=== PATIENT | male | born 1995 | race Caucasian/White ===

== ENCOUNTER → 2020-06-25 11:09 | Outpatient (CLI) | payer MEDICAID, BC, SELFPAY | PROVIDERS: PCP Family Medicine; Visit Provider Family Medicine | DX: Z20.828 Contact with and (suspected) exposure to other viral communicable diseases (principal); U07.1 COVID-19 | CPT/HCPCS: U0003 ==

== ENCOUNTER → 2021-08-22 12:30 | Outpatient (CLI) | payer OTHER, SELFPAY | PROVIDERS: Visit Provider Nurse Practitioner | DX: Z20.822 Contact with and (suspected) exposure to COVID-19 (principal) | CPT/HCPCS: C9803; U0003; U0005 ==

== ENCOUNTER → 2021-08-29 10:41 | Outpatient (CLI) | payer OTHER, SELFPAY ==
[2021-08-29 11:53] LABS: Basophils # 0.1 K/mm3 (0-0.2); Basophils % 2.2 % (0.1-2.0); Eosinophils % 0.5 % (0.1-12.0); Hematocrit 44.9 % (42.0-52.0); Lymphocytes # 1.1 K/mm3 (0.7-4.5); Lymphocytes % 19.6 % (10-50); Mean Corpuscular HGB Conc 33.4 g/dL (31.8-35.4); Mean Corpuscular Volume 92.7 fl (80-94); Mean Platelet Volume 7.3 fl (7.4-10.4); Monocytes # 0.4 K/mm3 (0.1-1.0); Neutrophils # 3.9 K/mm3 (1.8-7.8); Neutrophils % 70.6 % (37.0-80.0); Platelet Count 314 K/mm3 (142-424); Red Blood Count 4.85 M/mm3 (4.60-6.20); Red Cell Distribution Width 13.3 % (11.5-17.5); White Blood Count 5.6 K/mm3 (4.8-10.8)
[2021-08-29 12:03] LABS: Adenovirus,PCR Not Detected (NotDetected); Bordetella Pertussis Not Detected (NotDetected); Chlamydophila Pneumoniae, PCR Not Detected (NotDetected); Coronavirus 229E Not Detected (NotDetected); Coronavirus NL63 Not Detected (NotDetected); Coronavirus OC43 Not Detected (NotDetected); Coronovirus HKU1,PCR Not Detected (NotDetected); Human Metapneumovirus Not Detected (NotDetected); Influenza A, PCR Not Detected (NotDetected); Influenza AH1, 2009 Not Detected (NotDetected); Influenza AH1, PCR Not Detected (NotDetected); Influenza AH3,PCR Not Detected (NotDetected); Influenza B, PCR Not Detected (NotDetected); Mycoplasma Pneumoniae, PCR Not Detected (NotDetected); Parainfluenza 1, PCR Not Detected (NotDetected); Parainfluenza 2, PCR Not Detected (NotDetected); Parainfluenza 3, PCR Not Detected (NotDetected); Parainfluenza 4, PCR Not Detected (NotDetected); Respiratory Syncytial Virus Not Detected (NotDetected); Rhinovirus/Enterovirus Not Detected (NotDetected)
[2021-08-29 12:30] LABS: Strep Scrn Group A (Rapid) Negative (Negative)
== END ==
PROVIDERS: PCP Family Medicine; Visit Provider Family Medicine
DX: U07.1 COVID-19 (principal)
CPT/HCPCS: 36415; 85025; 87430; 87486; 87581; 87632; 87798; C9803; U0003; U0005

== ENCOUNTER 2025-02-08 18:49 | Emergency (ER) | payer BC, SELFPAY ==
--- NOTE | 2025-02-08 19:41 | [facility].EDGENADL ---
Discharge Plan Disposition Patient Disposition: Home, Self-Care Condition: Good Referrals Follow up/Referrals: Apryl Camacho MD [Primary Care Provider, Medical] - See instructions Activity Restrictions/Add. Instructions Additional Instructions/Restrictions: If you continue to have headaches I recommend following up with your PCP for referral for neurologic evaluation however should you have any worsening signs or symptoms please return to the Emergency Department as needed. Clinical Impressions Clinical Impression: Migraine Qualifiers: Migraine type: migraine (< 15 days per month) with aura Status migrainosus presence: without status migrainosus Intractability: not intractable Qualified Code(s): G43.109 - Migraine with aura, not intractable, without status migrainosus Instructions Patient Instructions: DI for Migraine Print Language Print Language: Beninese Discharge ED Provider: Jono Dacosta Adult HPI <JESSE Cox - Last Filed: 02/08/25 20:48> General Chief complaint: Headache Stated complaint: got headache, nausea after a workout Time Seen by Provider: 02/08/25 19:41 History of Present Illness HPI narrative: Patient presents for evaluation of a headache. Patient reports that he had acute onset of headache this afternoon. It was preceded by a workout however it was not particularly difficult. 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 Patient states that it for started with vision changes in his right eye followed by the headache and then nausea and then 1 episode of vomiting. Patient reports photophobia phonophobia. He does not have a known history of migraines but has had multiple concussions in the past. He has had headaches previously because of that but nothing like this before. It is not the worst headache that has had in his life. He has no focal neurologic deficits denies chest pain shortness of breath fever chills hemoptysis hematochezia melena hematemesis hematuria diarrhea. Related Data Allergies Allergy/AdvReac Type Severity Reaction Status Date / Time azithromycin (From Zithromax Allergy Mild hives Verified 08/31/20 08:07 Z-Yasmany) Sulfa (Sulfonamide Allergy Mild hives Verified 08/31/20 08:07 Antibiotics) PFSH <JESSE Cox - Last Filed: 02/08/25 20:48> [facility] Disclaimer: The information contained in this section may have been updated after the patient was seen, as this information can be updated by other users. Social History Smoking Status: Never smoker alcohol intake: never current occupational status: employed Travel in the last 8 weeks?: None Have you lived/traveled outside [place] in past 30 days?: No Contact w/someone who lives/traveled outside [place] past 30 days?: No Exposure to someone with infectious disease in past 14 days?: No Do you have a fever (greater than 100.4 F or 38 C)?: No Have you tested positive for COVID-19?: No Exposed to someone with COVID-19 in past 14 days?: No Do you have a sore throat?: No Do you have a cough?: No Do you have any weakness?: No Do you have any diarrhea?: No Are you experiencing any unusual bleeding?: No Do you have any muscle aches/pain?: No Do you have any abdominal pain?: No Are you experiencing loss of taste or smell?: No Other Medical History Have you received the Pneumonia Vaccine: No <JESES Cox - Last Filed: 02/08/25 20:48> ROS Obtained: Yes Systems reviewed as appropriate & no additional complaints except as documented Physical Exam <JESSE Cox - Last Filed: 02/08/25 20:48> General General appearance: alert and in no apparent distress Respiratory Respiratory exam: Present normal lung sounds bilaterally Cardiovascular Cardiovascular exam: Present regular rate Neurological Exam Neurological exam: Present alert, oriented X3, CN II-XII intact and normal gait; Absent motor sensory deficit Medical Decision Making <JESSE Cox - Last Filed: 02/08/25 20:48> Medical Records Medical records reviewed: Yes I reviewed the patient's medical records. Screening: Per USPSTF and CDC recommendations, given the prevalence of disease in our region, it is our hospital?s policy to screen for HIV and viral Hepatitis for all patients aged 18 and over and those with ongoing risk factors. [place] Inquiry Pt receiving controlled substance: No Vital Signs: 02/08/25 19:47 02/08/25 20:49 Temperature 98.5 F 98.4 F Temperature Source Oral Pulse Rate 62 Pulse Rate [Right Radial] 66 Respiratory Rate 18 18 Blood Pressure 132/84 Blood Pressure [Right Arm] 143/83 H Blood Pressure Mean [Right Arm] 103 Blood Pressure Source [Right Arm] Automatic Cuff Blood Pressure Position [Right Arm] Supine 02 Sat by Pulse Oximetry 100 Oxygen Delivery Method Room Air Room Air Lab Data Lab results reviewed: Yes I reviewed the patient's lab results. Lab Results 02/08/25 19:58: WBC 12.5 H, RBC 5.04, Hgb 15.5, Hct 43.1, MCV 85.5, MCH 30.8, MCHC 36.0 H, RDW 12.0, Plt Count 275, MPV 9.1, Neut % (Auto) 80.0, Lymph % (Auto) 14.0, Bulloch % (Auto) 4.7, Eos % (Auto) 0.3, Baso % (Auto) 0.4, Neut # (Auto) 10.0 H, Lymph # (Auto) 1.8, Bulloch # (Auto) 0.6, Eos # (Auto) 0.0, Baso # (Auto) 0.1, ESR 5, Sodium 136, Potassium 4.2, Chloride 98, Carbon Dioxide 27, Anion Gap 15.2 H, BUN 25 H, Creatinine 1.10, Estimated Creat Clear 138, Estimated GFR 80, Est GFR ( Amer) 96, Glucose 104 H, Calcium 10.0, Magnesium 1.9, Total Bilirubin 0.8, AST 35, ALT 33, Alkaline Phosphatase 58, C-Reactive Protein 0.6, Total Protein 8.3 H, Albumin 5.2 H, Globulin 3.1, Albumin/Globulin Ratio 1.7, HCV Ab KAYLEE w/Rflx PCR Qn Negative, HIV Ag/Ab Combo Qual Negative 02/08/25 19:58 02/08/25 19:58 Orders (Tests/Meds): ED MEDICATIONS Discontinued Medications Generic Name Dose Route Start Last Admin Trade Name Jeremyq PRN Reason Stop Dose Admin Acetaminophen 1,000 mg 02/08/25 19:50 02/08/25 20:11 Acetaminophen 500mg Tab PO 02/08/25 19:51 1,000 mg ONCE ONE Administration Dexamethasone Sodium Phosphate 10 mg 02/08/25 19:50 02/08/25 20:16 Dexamethasone 4mg/Ml 5ml Mdv IV 02/08/25 19:51 10 mg ONCE ONE Administration Diphenhydramine HCl 50 mg 02/08/25 19:50 02/08/25 20:09 Diphenhydramine 50mg/Ml Vial IV 02/08/25 19:51 50 mg ONCE ONE Administration Sodium Chloride 1,000 mls @ 999 mls/hr 02/08/25 19:50 02/08/25 20:16 Sod Chlor 0.9% 1000ml Bag IV 02/08/25 20:50 999 mls/hr .Q1H1M ONE Administration Ketorolac Tromethamine 15 mg 02/08/25 19:50 02/08/25 20:10 Ketorolac 30mg/Ml Vial IV 02/08/25 19:51 15 mg ONCE ONE Administration Methocarbamol 500 mg 02/08/25 19:50 02/08/25 20:11 Methocarbamol 500mg Tablet PO 02/08/25 19:51 500 mg ONCE ONE Administration Prochlorperazine Edisylate 5 mg 02/08/25 19:50 02/08/25 20:16 Prochlorperazine 10mg/2ml Vial IV 02/08/25 19:51 5 mg ONCE ONE Administration ORDERS Category Date Time Status CBC w/Auto Diff [Complete Blood Count Auto Diff] Stat Lab 02/08/25 19:58 Completed CMP [Comprehensive Metabolic Panel] Stat Lab 02/08/25 19:58 Completed CRP [C-Reactive Protein] Stat Lab 02/08/25 19:58 Completed ESR [Erythrocyte Sedimentation Rate] Stat Lab 02/08/25 19:58 Completed HIV Combo Stat Lab 02/08/25 19:58 Completed Hepatitis C Ab Qual. W/ RFX Stat Lab 02/08/25 19:58 Completed Magnesium Stat Lab 02/08/25 19:58 Completed Medical Decision Narrative: In summary patient is a 30-year-old male who presents to the emergency department for evaluation of headache. Patient is hemodynamically stable with a blood pressure 143/83 pulse 66 sinus rhythm on the bedside monitor breathing 18 times a minute satting at 100% on room air upon arrival, afebrile at 98.5. Physical exam is remarkable for no focal neurologic deficits, there is no nuchal rigidity or cervical spine tenderness. Pupils equal round reactive to light. Extraocular movements intact without pain. Cranial nerves II through XII intact respiratory exam. Breath sounds clear and equal bilaterally to the bases without adventitious sounds. Patient is amatory in the ER with no focal neurologic deficits.. Differential diagnosis includes migraine versus other headache. I considered postconcussive syndrome however patient's had no recent trauma and no red flags suggest that this is anything other than a classic headache thus alternative diagnoses were not pursued.. Initial workup will be conducted with hematologic labs.. Initial interventions include Tylenol Decadron Toradol Compazine Benadryl and Robaxin. Initial workup reviewed by me and his hematologic labs are nonactionable. Upon repeat evaluation patient had complete resolution of his headache. Given this patient is appropriate for discharge with strict return precautions. <Jono Dacosta MD - Last Filed: 02/09/25 09:46> Vital Signs: 02/08/25 19:47 02/08/25 20:49 Temperature 98.5 F 98.4 F Temperature Source Oral Pulse Rate 62 Pulse Rate [Right Radial] 66 Respiratory Rate 18 18 Blood Pressure 132/84 Blood Pressure [Right Arm] 143/83 H Blood Pressure Mean [Right Arm] 103 Blood Pressure Source [Right Arm] Automatic Cuff Blood Pressure Position [Right Arm] Supine 02 Sat by Pulse Oximetry 100 Oxygen Delivery Method Room Air Room Air Lab Data Lab Results 02/08/25 19:58: WBC 12.5 H, RBC 5.04, Hgb 15.5, Hct 43.1, MCV 85.5, MCH 30.8, MCHC 36.0 H, RDW 12.0, Plt Count 275, MPV 9.1, Neut % (Auto) 80.0, Lymph % (Auto) 14.0, Bulloch % (Auto) 4.7, Eos % (Auto) 0.3, Baso % (Auto) 0.4, Neut # (Auto) 10.0 H, Lymph # (Auto) 1.8, Bulloch # (Auto) 0.6, Eos # (Auto) 0.0, Baso # (Auto) 0.1, ESR 5, Sodium 136, Potassium 4.2, Chloride 98, Carbon Dioxide 27, Anion Gap 15.2 H, BUN 25 H, Creatinine 1.10, Estimated Creat Clear 138, Estimated GFR 80, Est GFR ( Amer) 96, Glucose 104 H, Calcium 10.0, Magnesium 1.9, Total Bilirubin 0.8, AST 35, ALT 33, Alkaline Phosphatase 58, C-Reactive Protein 0.6, Total Protein 8.3 H, Albumin 5.2 H, Globulin 3.1, Albumin/Globulin Ratio 1.7, HCV Ab KAYLEE w/Rflx PCR Qn Negative, HIV Ag/Ab Combo Qual Negative Orders (Tests/Meds): ED MEDICATIONS Discontinued Medications Generic Name Dose Route Start Last Admin Trade Name Mervat PRN Reason Stop Dose Admin Acetaminophen 1,000 mg 02/08/25 19:50 02/08/25 20:11 Acetaminophen 500mg Tab PO 02/08/25 19:51 1,000 mg ONCE ONE Administration Dexamethasone Sodium Phosphate 10 mg 02/08/25 19:50 02/08/25 20:16 Dexamethasone 4mg/Ml 5ml Mdv IV 02/08/25 19:51 10 mg ONCE ONE Administration Diphenhydramine HCl 50 mg 02/08/25 19:50 02/08/25 20:09 Diphenhydramine 50mg/Ml Vial IV 02/08/25 19:51 50 mg ONCE ONE Administration Sodium Chloride 1,000 mls @ 999 mls/hr 02/08/25 19:50 02/08/25 20:16 Sod Chlor 0.9% 1000ml Bag IV 02/08/25 20:50 999 mls/hr .Q1H1M ONE Administration Ketorolac Tromethamine 15 mg 02/08/25 19:50 02/08/25 20:10 Ketorolac 30mg/Ml Vial IV 02/08/25 19:51 15 mg ONCE ONE Administration Methocarbamol 500 mg 02/08/25 19:50 02/08/25 20:11 Methocarbamol 500mg Tablet PO 02/08/25 19:51 500 mg ONCE ONE Administration Prochlorperazine Edisylate 5 mg 02/08/25 19:50 02/08/25 20:16 Prochlorperazine 10mg/2ml Vial IV 02/08/25 19:51 5 mg ONCE ONE Administration ORDERS Category Date Time Status CBC w/Auto Diff [Complete Blood Count Auto Diff] Stat Lab 02/08/25 19:58 Completed CMP [Comprehensive Metabolic Panel] Stat Lab 02/08/25 19:58 Completed CRP [C-Reactive Protein] Stat Lab 02/08/25 19:58 Completed ESR [Erythrocyte Sedimentation Rate] Stat Lab 02/08/25 19:58 Completed HIV Combo Stat Lab 02/08/25 19:58 Completed Hepatitis C Ab Qual. W/ RFX Stat Lab 02/08/25 19:58 Completed Magnesium Stat Lab 02/08/25 19:58 Completed Medical Decision Narrative: In summary patient is a 30-year-old male who presents to the emergency department for evaluation of headache. Patient is hemodynamically stable with a blood pressure 143/83 pulse 66 sinus rhythm on the bedside monitor breathing 18 times a minute satting at 100% on room air upon arrival, afebrile at 98.5. Physical exam is remarkable for no focal neurologic deficits, there is no nuchal rigidity or cervical spine tenderness. Pupils equal round reactive to light. Extraocular movements intact without pain. Cranial nerves II through XII intact respiratory exam. Breath sounds clear and equal bilaterally to the bases without adventitious sounds. Patient is amatory in the ER with no focal neurologic deficits.. Differential diagnosis includes migraine versus other headache. I considered postconcussive syndrome however patient's had no recent trauma and no red flags suggest that this is anything other than a classic headache thus alternative diagnoses were not pursued.. Initial workup will be conducted with hematologic labs.. Initial interventions include Tylenol Decadron Toradol Compazine Benadryl and Robaxin. Initial workup reviewed by me and his hematologic labs are nonactionable. Upon repeat evaluation patient had complete resolution of his headache. Given this patient is appropriate for discharge with strict return precautions. I was consulted by the SHARON, and we discussed the complexity of the problems being addressed. I approve the treatment and management plan for this patient's care in the emergency department, thus performing a substantive portion of the medical decision making. Jono Dacosta MD Critical Care <JESSE Cox - Last Filed: 02/08/25 20:48> Critical Care Time Critical Care Time: No
[2025-02-08 19:47] VITALS: BP 143/83; PULSE 66; RESP 18; TEMP 36.9; O2SAT 100; BMI 26.9
[2025-02-08 20:08] LABS: Hematocrit 43.1 % (42.0-52.0); Hemoglobin 15.5 g/dL (14.1-18.0); Immature Granulocytes % 0.6 %; Mean Corpuscular HGB Conc 36.0 g/dL (31.8-35.4); Mean Corpuscular Hemoglobin 30.8 pg (27.0-31.2); Mean Corpuscular Volume 85.5 fl (80-94); Nucleated Red Blood Cells % 0 %; Platelet Count 275 K/mm3 (142-424); Red Blood Count 5.04 M/mm3 (4.60-6.20); Red Cell Distribution Width-SD 37.3 fL; White Blood Count 12.5 K/mm3 (4.8-10.8)
[2025-02-08] MEDS: KETOROLAC 30MG/ML VIAL 15 MG IV (20:10)
[2025-02-08] MEDS: METHOCARBAMOL 500MG TABLET 500 MG PO (20:11)
[2025-02-08] MEDS: ACETAMINOPHEN 500MG TAB 1000 MG PO (20:11)
[2025-02-08] MEDS: DEXAMETHASONE 4MG/ML 5ML MDV 10 MG IV (20:16)
[2025-02-08] MEDS: 0.9 % SODIUM CHLORIDE 1000ML 1,000 ML 999 ML IV (20:16)
[2025-02-08] MEDS: PROCHLORPERAZINE 10MG/2ML VIAL 5 MG IV (20:16)
--- NOTE | 2025-02-08 20:20 | PC.NURSE ---
Patient administered medication, verified via bracelet. Also verified allergies.
[2025-02-08 20:22] LABS: Chloride 98 mmol/L (98-107)
[2025-02-08 20:23] LABS: Albumin Level 5.2 g/dl (3.5-5.0); Potassium 4.2 mmoL/L (3.5-5.1); Sodium 136 mmol/L (136-145)
[2025-02-08 20:25] LABS: Anion Gap 15.2 mEq/L (5-15); Blood Urea Nitrogen 25 mg/dl (9-20); Carbon Dioxide 27 mmol/L (22.0-30.0); Creatinine Clearance Estimated 138 mL/min (50-200); Creatinine,Serum 1.10 mg/dl (0.66-1.25); Estimated Glomerular Filt Rate 80 ml/min (>60); GFR (African American) 96 ML/MIN (>60)
[2025-02-08 20:26] LABS: Alanine Aminotransferase 33 U/L (12-78); Albumin/Globulin Ratio 1.7 (1.1-1.8); Alkaline Phosphatase 58 U/L (38-126); Aspartate Amino Transferase 35 U/L (17-59); Bilirubin,Total 0.8 mg/dl (0.2-1.3); Calcium 10.0 mg/dl (8.4-10.2); Globulin 3.1 g/dL (1.3-3.2); Glucose 104 mg/dl (74-100); Magnesium 1.9 mg/dl (1.6-2.3); Total Protein,Serum 8.3 g/dl (6.3-8.2)
[2025-02-08 20:31] LABS: C-Reactive Protein 0.6 mg/L (0-4)
[2025-02-08 20:49] VITALS: BP 132/84; PULSE 62; RESP 18; TEMP 36.9; O2SAT 99
[2025-02-08 21:54] LABS: Hepatitis C Ab Qual. W/ RFX NEGATIVE (Negative)
== END 2025-02-08 20:55 | disposition home or self-care (01) ==
PROVIDERS: Physician Assistant; Emergency Provider Student in an Organized Health Care Education/Training Program; PCP Family Medicine
DX: G43.109 Migraine with aura, not intractable, without status migrainosus (principal); R11.2 Nausea with vomiting, unspecified; H53.19 Other subjective visual disturbances
CPT/HCPCS: 80053; 83735; 85025; 85651; 86140; 86803; 87389; 96361; 96374; 96375; 99284; J0780; J1100; J1200; J1885; J7030